=== PATIENT | female | born 1965 | race Two or more races ===

== ENCOUNTER 2017-03-28 11:10 | Outpatient (CLI) | payer BC | END 2017-03-28 11:11 | disposition home or self-care (01) | LOC: DI 11:10 | PROVIDERS: ATTEND Physician Assistant | DX: R01.1 Cardiac murmur, unspecified (principal) | CPT/HCPCS: 93306 ==

== ENCOUNTER 2020-03-10 11:27 | Emergency (ER) | payer BC, MEDICARE ==
--- NOTE | 2020-03-10 12:06 | ED Physician Documentation ---
PD HPI URI - Stated complaint Stated Complaint: HEADACHE,SORE THROAT,SOB - Chief complaint Chief Complaint: General - History obtained from History obtained from: Patient - History of Present Illness Timing - onset: How many days ago (5-6) Timing duration: Weeks (1) Timing details: Gradual onset, Still present (she presumed would be getting better by now, but feeling worse breathing and chest tightness.) Associated symptoms: Fever, Chills, Nasal congestion, Dry cough, Chest pain (tightness feeling), Dyspnea. No: Hemoptysis, NVD Contributing factors: No: Sick contact, Travel, Immunocompromised, COPD / asthma Similar symptoms before: Has not had sx before Recently seen: Not recently seen Review of Systems Constitutional: reports: Fever, Chills, Myalgias Nose: reports: Congestion Throat: denies: Sore throat Cardiac: reports: Chest pain / pressure (tightness). denies: Palpitations, Pedal edema, Calf pain Respiratory: reports: Dyspnea, Cough. denies: Wheezing GI: denies: Nausea, Vomiting, Diarrhea Skin: denies: Rash, Lesions Musculoskeletal: denies: Neck pain Neurologic: denies: Confused, Altered mental status, Headache PD PAST MEDICAL HISTORY - Past Medical History Cardiovascular: None Respiratory: None Neuro: None Endocrine/Autoimmune: None - Present Medications Home Medications: Ambulatory Orders Medication Instructions Recorded Confirmed Albuterol Sulf [Ventolin Hfa 1 - 2 puffs INH Q4HR PRN #1 inhaler 03/10/20 Inhaler] Benzonatate [Tessalon] 100 mg PO TID PRN #20 capsule 03/10/20 Cetirizine [ZyrTEC] 10 mg PO DAILY #15 tablet 03/10/20 dexAMETHasone [Decadron] 4 mg PO DAILY #5 tablet 03/10/20 - Allergies Allergies/Adverse Reactions: Allergies Allergy/AdvReac Type Severity Reaction Status Date / Time No Known Drug Allergies Allergy Verified 03/10/20 11:49 - Living Situation Living Situation: reports: With spouse/s.o. Living Arrangement: reports: At home - Social History Does the pt smoke?: No PD ED PE NORMAL - Vitals Vital signs reviewed: Yes - General General: Alert and oriented X 3, No acute distress, Well developed/nourished - HEENT HEENT: Ears normal, Moist mucous membranes, Pharynx benign - Neck Neck: Supple, no meningeal sign, No adenopathy - Cardiac Cardiac: RRR, No murmur - Respiratory Respiratory: Clear bilaterally (but with some prolonged expiratory phase. ) - Derm Derm: Normal color, Warm and dry - Extremities Extremities: No tenderness to palpate, No edema, No calf tenderness / cord - Neuro Neuro: Alert and oriented X 3, No motor deficit, Normal speech Results - Vitals Vitals: Vital Signs - 24 hr 03/10/20 03/10/20 11:49 14:29 Temperature 36.9 C 36.8 C Heart Rate 76 66 Respiratory 20 16 Rate Blood Pressure 126/79 129/75 O2 Saturation 100 100 Oxygen O2 Source Room air - EKG (time done) 13:05 Rate: Rate (enter#) (68) Rhythm: NSR [place]: Normal Intervals: Normal MT QRS: Normal Ischemia: Normal ST segments. No: ST elevation c/w ischemia, ST depression - Labs Labs: Laboratory Tests 03/10/20 03/10/20 03/10/20 13:08 13:08 13:08 WBC 6.6 RBC 4.30 Hgb 13.5 Hct 40.5 MCV 94.2 MCH 31.4 H MCHC 33.3 RDW 12.9 Plt Count 350 MPV 10.3 Neut # (Auto) 4.5 Lymph # (Auto) 1.6 [place] # (Auto) 0.4 Eos # (Auto) 0.1 Baso # (Auto) 0.0 Absolute Nucleated RBC 0.00 Nucleated RBC % 0.0 Sodium 141 Potassium 3.9 Chloride 102 Carbon Dioxide 27 Anion Gap 12.0 BUN 9 Creatinine 0.8 Estimated GFR (MDRD) 74 L Glucose 115 H Calcium 9.6 Total Bilirubin 0.5 AST 16 ALT 17 Alkaline Phosphatase 68 Troponin I High Sens < 2.3 L B-Natriuretic Peptide Total Protein 7.4 Albumin 3.9 Globulin 3.5 Albumin/Globulin Ratio 1.1 Lipase 34 03/10/20 13:08 WBC RBC Hgb Hct MCV MCH MCHC RDW Plt Count MPV Neut # (Auto) Lymph # (Auto) [place] # (Auto) Eos # (Auto) Baso # (Auto) Absolute Nucleated RBC Nucleated RBC % Sodium Potassium Chloride Carbon Dioxide Anion Gap BUN Creatinine Estimated GFR (MDRD) Glucose Calcium Total Bilirubin AST ALT Alkaline Phosphatase Troponin I High Sens B-Natriuretic Peptide 15 Total Protein Albumin Globulin Albumin/Globulin Ratio Lipase - Rads (name of study) chest xray Radiology: Prelim report reviewed (no infiltrates nor acute process), See rad report PD MEDICAL DECISION MAKING - ED course Complexity details: considered differential (consider COVID versus other viral i llness. Does not sound bacterial. Has chest tightness and dysdpnea, so consider concurrent/precipitiated CAD/pneumonia/PTX/etc.), d/w patient Departure - Departure Disposition: 01 Home, Self Care Clinical Impression: Chest tightness Upper respiratory infection Qualifiers: URI type: unspecified URI Qualified Code(s): J06.9 - Acute upper respiratory infection, unspecified Condition: Stable Record reviewed to determine appropriate education?: Yes Instructions: ED Upper Resp Infec No Abx Tx Prescriptions: Albuterol Sulf [Ventolin Hfa Inhaler] 1 - 2 puffs INH Q4HR PRN #1 inhaler PRN Reason: Shortness Of Air/Wheezing dexAMETHasone [Decadron] 4 mg PO DAILY #5 tablet Benzonatate [Tessalon] 100 mg PO TID PRN #20 capsule PRN Reason: Cough Cetirizine [ZyrTEC] 10 mg PO DAILY #15 tablet Comments: Your chest xray is clear without any signs of pneumonia. Your EKG is normal. Blood test do not show any signs of heart failure or heart attack or electrolyte problems. Your Covid test should result in the next couple of days. Meanwhile stay well- hydrated and rested. Use the albuterol inhaler 2 puffs 4 times a day to try to help with the chest tightness. Also cough medication if needed. Cetirizine daily or twice daily to help with congestion. Decadron steroid to help with inflammation through the sinuses and bronchioles. You have a Covid test pending. You need to self quarantine until the result is done and negative. Do not leave your house. Do not get near anybody. The results should be done in 48 to 72 hours, but sometimes longer. We will call with a positive result, the fastest way to get a negative result for confirmation though is to go to the hospital website at [email or web address], click on the my [employer] tab and sign up for the patient portal. If any friends or family get sick and would like to have a Covid test done, but do not have signs or symptoms that would necessitate being hospitalized, we encourage testing through our coronavirus swabbing station, call [phone] to schedule an appointment. Discharge Date/Time: 03/10/20 14:30
[2020-03-10] MEDS ORDERED: CETIRIZINE 10 MG TABLET PO STA (12:49)
[2020-03-10] MEDS ORDERED: CHERRY SYRUP 10 ML UDC PO ONE (12:49)
[2020-03-10] MEDS ORDERED: DEXAMETHASONE 10 MG/ML VIAL PO STA (12:49)
[2020-03-10 13:19] LABS: BASOPHILS % (AUTO) 0.6 %; EOSINOPHILS # (AUTO) 0.1 10^3/uL (0.0-0.7); EOSINOPHILS % (AUTO) 1.4 %; HGB - HEMOGLOBIN 13.5 g/dL (12.0-16.0); LYMPHOCYTES # (AUTO) 1.6 10^3/uL (1.5-3.5); MEAN CORPUSCULAR HEMOGLOBIN 31.4 pg (27.0-31.0); MEAN CORPUSCULAR HGB CONC 33.3 g/dL (32.0-36.0); MEAN CORPUSCULAR VOLUME 94.2 fL (81.0-99.0); MEAN PLATELET VOLUME 10.3 fL (7.9-10.8); MONOCYTES # (AUTO) 0.4 10^3/uL (0.0-1.0); MONOCYTES % (AUTO) 5.6 %; NEUTROPHILS # (AUTO) 4.5 10^3/uL (1.5-6.6); NEUTROPHILS % (AUTO) 68.2 %; PLT - PLATELET COUNT 350 10^3/uL (130-450); RED CELL DISTRIBUTION WIDTH 12.9 % (12.0-15.0); WHITE BLOOD COUNT 6.6 x10^3/uL (4.8-10.8)
--- NOTE | 2020-03-10 13:31 | XRAY Report ---
PROCEDURE: Chest 1 View X-Ray INDICATIONS: Chest Pain TECHNIQUE: One view of the chest was acquired. COMPARISON: None FINDINGS: Surgical changes and devices: None. Lungs and pleura: No pleural effusions or pneumothorax. Lungs are clear. Mediastinum: Mediastinal contours appear normal. Heart size is normal. An apparent hiatal hernia ca n be seen. Bones and chest wall: No suspicious bony lesions. Overlying soft tissues appear unremarkable. IMPRESSION: Portable chest within normal limits for age. No focal infiltrates are seen. Apparent hiatal hernia. Reviewed by: Jeromy Mondragon MD on 03/10/2020 12:29 PM [facility] Approved by: Jeromy Mondragon MD on 03/10/2020 12:29 PM [facility] Station ID: [id number]
[2020-03-10 13:32] LABS: ALBUMIN 3.9 g/dL (3.2-5.5); ALBUMIN/GLOBULIN RATIO 1.1 (1.0-2.2); BILIRUBIN,TOTAL 0.5 mg/dL (0.2-1.0); CALCIUM 9.6 mg/dL (8.5-10.3); CREATININE 0.8 mg/dL (0.4-1.0); TOTAL PROTEIN 7.4 g/dL (6.7-8.2)
[2020-03-10 14:30] VITALS: BP 129/75
== END 2020-03-10 14:30 | disposition home or self-care (01) ==
LOC: ED 11:27
DX: R07.89 Other chest pain (principal); J06.9 Acute upper respiratory infection, unspecified; Z20.822 Contact with and (suspected) exposure to COVID-19
CPT/HCPCS: 36415; 71045; 80053; 83690; 83880; 84484; 85025; 93005; 99283; 99284; A9270; U0004

== ENCOUNTER 2020-07-19 15:04 | Outpatient (CLI) | payer MEDICARE ==
--- NOTE | 2020-07-30 14:50 | Mammography Report ---
BILATERAL DIGITAL SCREENING MAMMOGRAM 3D/2D: 07/19/2020 CLINICAL: Routine screening. No prior exams were available for comparison. There are scattered fibroglandular elements in both br easts. No significant masses, calcifications, or other findings are seen in either breast. IMPRESSION: NEGATIVE There is no mammographic evidence of malignancy. A 1 year screening mammogram is recommended. This exam was interpreted at Station ID: [id number]. NOTE: For mammograms, a report in lay terms will be sent to the patient. Approximately 15% of breast malignancies will not be visualized mammographically. In the management of a palpable breast mass, a negative mammogram must not discourage biopsy of a clinically suspicious lesion. Electronically Signed By: Kameron Sigala acr/penrad:07/27/2020 08:16:18 ACR BI-RADS Category 1: Negative [id number] PARENCHYMAL PATTERN: (A) - The breast(s) demonstrate(s) scattered fibroglandular densities. BI-RADS CATEGORY: (1) - 1 RECOMMENDATION: (ANNUAL) - Recommend routine annual screening mammography. [id number] 1 year screening LATERALITY: (B)
== END 2020-07-19 15:05 | disposition home or self-care (01) ==
LOC: DI.N 15:04
PROVIDERS: ATTEND Physician Assistant
DX: Z12.31 Encounter for screening mammogram for malignant neoplasm of breast (principal)

== ENCOUNTER 2021-12-08 12:01 | Emergency (ER) | payer BC, MEDICARE ==
[2021-12-08 12:15] VITALS: BP 107/67
--- NOTE | 2021-12-08 13:25 | ED Physician Documentation ---
PD HPI URI - Stated complaint Stated Complaint: + COVID - Chief complaint Chief Complaint: Resp - History obtained from History obtained from: Patient - History of Present Illness Timing - onset: How many days ago (2) Timing duration: Days (2) Timing details: Abrupt onset, Still present Associated symptoms: Fever, Nasal congestion, NVD (nausea without vomiting), Other (frontal headache/pressure) Contributing factors: No: Sick contact, Travel (The patient was actually supposed to travel by plane to the [facility] today but did not travel due to illness and a positive home COVID test. She does have travel insurance which requires a PCR test positive. She is also having dyspnea and headache sympt oms.), Unimmunized, COPD / asthma (She does not have asthma per se but does get wheezing and needs to use an albuterol inhaler with illnesses in the past. She tried her inhaler last night and today without notable relief.) Review of Systems Constitutional: reports: Fever, Chills, Myalgias Nose: reports: Congestion, Sinus pressure / pain Throat: denies: Sore throat Cardiac: denies: Chest pain / pressure Respiratory: reports: Dyspnea, Cough, Wheezing GI: reports: Nausea. denies: Vomiting, Diarrhea Skin: denies: Rash Neurologic: denies: Altered mental status PD PAST MEDICAL HISTORY - Past Medical History Cardiovascular: None Respiratory: None Neuro: None Endocrine/Autoimmune: None Psych: ADD/ADHD - Past Surgical History Past Surgical History: No - Present Medications Home Medications: Ambulatory Orders Medication Instructions Recorded Confirmed Albuterol Sulf [Ventolin Hfa 1 - 2 puffs INH Q4HR PRN #1 inhaler 03/10/20 Inhaler] Benzonatate [Tessalon] 100 mg PO TID PRN #20 capsule 03/10/20 Cetirizine [ZyrTEC] 10 mg PO DAILY #15 tablet 03/10/20 dexAMETHasone [Decadron] 4 mg PO DAILY #5 tablet 03/10/20 HYDROcod/ACETAM 5/325 [[place] 5/325] 1 ea PO Q6H PRN #12 tablet 12/08/21 Ondansetron Odt [Zofran] 4 mg TL Q6H PRN #10 tablet 12/08/21 - Allergies Allergies/Adverse Reactions: Allergies Allergy/AdvReac Type Severity Reaction Status Date / Time No Known Drug Allergies Allergy Verified 12/08/21 12:16 - Social History Does the pt smoke?: No Smoking Status: Never smoker PD ED PE NORMAL - Vitals Vital signs reviewed: Yes - General General: Alert and oriented X 3, Well developed/nourished, Other (Pleasant and interactive. She does appear a bit uncomfortable with the frontal sinus headache.) - HEENT HEENT: Ears normal, Pharynx benign - Neck Neck: Supple, no meningeal sign, No adenopathy - Cardiac Cardiac: RRR, No murmur - Respiratory Respiratory: No: Clear bilaterally (No coarse sounds but does have scattered expiratory wheezing.) - Abdomen Abdomen: Soft, Non tender - Derm Derm: Normal color, Warm and dry - Extremities Extremities: No tenderness to palpate, No edema, No calf tenderness / cord - Neuro Neuro: Alert and oriented X 3, No motor deficit, Normal speech Results - Vitals Vitals: Vital Signs - 24 hr 12/08/21 12/08/21 12:11 14:07 Temperature 36.7 C Heart Rate 77 76 Respiratory 16 20 Rate Blood Pressure 107/67 O2 Saturation 99 Oxygen O2 Source Room air - Labs Labs: Laboratory Tests 12/08/21 12:51 SARS-CoV-2 (PCR) DETECTED A PD MEDICAL DECISION MAKING - ED course Complexity details: reviewed results, re-evaluated patient (She did notice improved breathing with the inhaler used with a spacer and teaching done by RT. She is also given medication to help with her headache. She appears well and not meningitic per se so I believe just a viral headache.), considered differential, d/w patient Departure - Departure Disposition: 01 Home, Self Care Clinical Impression: COVID-19, Viral illness, Headache, Dyspnea Condition: Stable Record reviewed to determine appropriate education?: Yes Instructions: ED Viral Syndrome Prescriptions: HYDROcod/ACETAM 5/325 [[place] 5/325] 1 ea PO Q6H PRN #12 tablet PRN Reason: Pain Ondansetron Odt [Zofran] 4 mg TL Q6H PRN #10 tablet PRN Reason: Nausea / Vomiting Comments: Stay well-hydrated. Ondansetron every 6 hours if needed for nausea. Use your Phenergan suppositories if needed for nausea vomiting. Continue your albuterol inhaler 2 to 3 puffs 4 times daily for the next several days to week to help with breathing. Use it with the spacer provided. Use the pack Slo-Bid antiviral medication twice daily for 5 days per the kit instructions. Stay quarantined and try to avoid common areas. I wrote a note for you to not be traveling currently. Recheck if not improving well over the next several days and return if worsening. I transmitted your prescriptions to [facility] in [place]. I am prescribing a short course of narcotic pain medication for you. These are potentially dangerous and addictive medications that should be used carefully. These medications may constipate you. Take an [id number] stool softener such as docusate twice daily with plenty of water while taking these medications. If you go 24 hours without a bowel movement, take [id number] [id number], per package instructions. Do not drink or drive while taking these medications. If you received narcotic or sedating medications while in the emergency department do not drive for 24 hours. Store this medication in a safe, secure place and out of reach of children. It is a violation of federal law to give or sell this medication to another person or to use in a manner other than prescribed. The ED will not refill narcotic prescriptions, including prescriptions lost or stolen. You can dispose of unwanted medications at the [facility]'s office or at several pharmacies such as [facility]. Forms: Activity restrictions
[2021-12-08] MEDS ORDERED: HYDROcod/ACETAM 5/325 MG TABLET PO STA (13:41)
[2021-12-08] MEDS ORDERED: CHERRY SYRUP 10 ML UDC PO ONE (13:41)
[2021-12-08] MEDS ORDERED: DEXAMETHASONE 10 MG/ML VIAL PO STA (13:41)
[2021-12-08] MEDS ORDERED: ALBUTEROL 1 PUFF INH STA (13:41)
[2021-12-08] MEDS ORDERED: NIRMATRELVIR/RITONAVIR PREPACK PO STA (13:56)
== END 2021-12-08 14:24 | disposition home or self-care (01) ==
LOC: ED 12:01
DX: U07.1 COVID-19 (principal); R51.9 Headache, unspecified; R06.09 Other forms of dyspnea; B34.9 Viral infection, unspecified
CPT/HCPCS: 87635; 94640; 94664; 99282; 99283; A9270; J3490